=== PATIENT | male | born 1980 | race Caucasian/White ===

== ENCOUNTER 2017-05-27 09:14 | Emergency (ER) | payer OTHER ==
[~2017-05-27] VITALS: Ht 185.4 cm; Wt 93.0 kg
--- OUTSIDE RECORDS SUMMARY | 2017-05-27 09:19 | External Medical Summary Rpt ---
Author Author , Organization [employer] Address Unknown Phone Unavailable Purpose Continuity of Care Document - through 2016
--- OUTSIDE RECORDS SUMMARY | 2017-05-27 09:19 | External Medical Summary Rpt ---
Author Author [employer] Organization [employer] Address Unknown Phone Unavailable Purpose Continuity of Care Document - through 2016
--- OUTSIDE RECORDS SUMMARY | 2017-05-27 09:20 | External Medical Summary Rpt ---
Demographics Preferred Language Puerto Rican Marital Status Unknown Samaritan Affiliation Unknown Race Unknown Ethnic Group Unknown Author Author , Organization [employer] Address Unknown Phone Unavailable Purpose Continuity of Care Document - through 2016 Immunization No patient found.
--- OUTSIDE RECORDS SUMMARY | 2017-05-27 09:20 | External Medical Summary Rpt ---
Author Author [employer], [employer] Organization [employer] Address Unknown Phone Unavailable
--- OUTSIDE RECORDS SUMMARY | 2017-05-27 09:20 | External Medical Summary Rpt ---
Demographics Preferred Language Welsh Marital Status Unknown Catholic Affiliation Unknown Race Unknown Ethnic Group Unknown Author Author , Organization [employer] Address Unknown Phone Unavailable Purpose Continuity of Care Document - through 2016 Immunization No patient found.
--- NOTE | 2017-05-27 10:01 | Urgent Treatment Center Report ---
History of Present Issue Date/Time Seen by Provider 05/27/17 0930 Visit Reason Pt arrived:Walked Presenting Problem:PATIENT STARTED COUGHING THRU THE NIGHT AND HAS A NON- PRODUCTIVE COUGH. FEELS CONGESTION IN HIS CHEST. PT STATES HE ALSO HAS CHILLS. STATES HE FEELS DRAINED AND HAD TO CALL INTO WORK TODAY. Location if Accident: Onset of symptoms date/time:/ or onset unknown for:MEDICAL HX UNKNOWN Have you (or family members/close friends) recently traveled outside the [place]? N If Yes, where/when: Have you had exposure to infectious disease within the past month? TB? Other? Specify: c/o nonproductive cough and chills causing him to call in to work today. Cough started yesterday. Fatigue last night. Went to bed at 5pm, woke up at 11pm sweating. Did not check temp. "I just figured I broke my fever". Eventually fell back to sleep. Woke up this morning still fatigued w/ nonproductive cough again. Hx of pneumonia "around a month or so ago". Treated w/ antibx by PCP, Anmol Salmon, and improved. Denies SOA, wheezing. + tobacco hx 1ppd. Source patient Exam Limitations no limitations ALLERGIES Coded Allergies: No Known Allergies (05/27/17) Home Medications Reported Medications No Known Home Medications History Medical History General Angina: No [place]: No Hypertension? No Hyperlipidemia? No CHF? No COPD? No Asthma? No Hypothyroidism? No CVA? No Seizures? No Diabetes? No GB Disease: No MRSA? No TB? No Cancer? No Immunization HX DT/Tetanus Unknown Surgical Hx Previous Surgery?N Social History Smoking Hx Smoker: Current Every Day Smoker Tobacco: Yes Type Cigarettes Packs/day < 1 Pack Alcohol Alcohol: No Review of Systems All Other Systems Reviewed and Negative Constitutional see HPI Eyes denies drainage ENT denies: ear pain, nose discharge, nose congestion, throat pain. Respiratory see HPI Cardiovascular denies chest pain, denies palpitations Gastrointestinal denies no symptoms reported Musculoskeletal denies other (aches) Skin denies rash Psychiatric/Neurological denies headache Physical Exam Vital Signs Vital Signs Date Time Temp Pulse Resp B/P Pulse O2 O2 Flow FiO2 Ox Delivery Rate 05/27 920 98.6 114 20 137/90 98 General Appearance normal appearance, no apparent distress Eye Exam - bilateral eye normal exam Ear, Nose, Throat normal ENT inspection Neck non-tender, supple, full range of motion, lymphadenopathy (R) Respiratory Status Yes: trachea midline, chest symmetrical, non tender chest, non productive cough (once in clinic). No: respiratory distress, use of accessory muscles, pain on inspiration, pain on expiration. Lung Sounds anterior: lungs clear. posterior: lungs clear. bilateral: lungs clear. Cardiovascular regular rate/rhythm, no peripheral edema, no murmur Neurologic alert, oriented x 3 Skin intact, warm/dry Lymphatic right anterior cervical single lymphadenopathy, approx 1cm, nontender, mobile (pt states present "a long time" and has not been seen for it) Medical Decision Making LABS/Meds/Orders Pt receiving controlled substance in ED? No Results/Orders Orders Procedure Date/time Status CHEST(2 VIEWS-NOT PORTABLE) 05/27 0942 Active XRAY/CT/US XRAY/CT/US XRAY chest XR interpretation by reviewed by me (chrissy w/ SHIRIN Durand MD) Xray Results normal/NAD Departure Departure Time of Disposition 1010 Disposition DC Home or Self Care(routine) Clinical Impression Primary Impression: Cough Secondary Impressions: Lymphadenopathy Condition STABLE Referrals ANMOL SALMON APRN For swollen lymph node, call today and schedule follow up appointment immediately. Be SURE to tell them this has been swollen an unknown amount of time. For cough, Follow up IMMEDIATELY for new or worsening symptoms OR no noticeable improvement over the next 48-72 hours. 911 for difficulty breathing.* Patient Instructions DI for Cough -- Adult, DI for Lymphadenopathy Additional Instructions Swollen Lymph Node: Lengthy discussion regarding differential diagnosis given length of time since swollen. This discussion included cancer. Offered labs today. Pt agrees to schedule follow up appt with PCP, Anmol Salmon, to have further workup. Aware of the importance of making sure the provider is aware of the length of time lymph node has remained swollen. * No sign of bacterial infection. Chest xray normal. Likely viral. Virus can take 7-14 days to run their course * Monitor Temp. Tylenol every 4 hours as needed and/or ibuprofen every 6 hours as needed (as long as your primary care doctor has told you that it is ok to take both) for fever/aches/pain. ER if fever no less than 101 despite tylenol and ibuprofen * Encourage fluids, water, gatorade, powerade, pedialyte if /toddler/child * sleep elevated * humidifier/vaporizer * Mucinex during the day for your cough and cough suppressant only at night. Be sure to drink lots of water. Insurance may not cover a prescription of mucinex. Might be cheaper to get 400mg tablets and take 2 tablets morning, midday and evening all with lots of water. * Tessalon Perles will not cause drowsiness but use at bedtime to help stop cough so that you can get some rest Follow up IMMEDIATELY for new or worsening symptoms OR no noticeable improvement over the next 48-72 hours. 911 for difficulty breathing or swallowing. Discharge Counseling Counseled pt/family regarding diagnosis, test results, medications/RX, home care, follow up needs Prescriptions Current Visit Scripts Benzonatate 200 MG PO QHSP PRN cough #14 SGL at 1014
[2017-05-27] MEDS ORDERED: BENZONATATE200 MG PO (10:14)
[2017-05-27 10:15] VITALS: BP 137/90
--- NOTE | 2017-05-27 11:36 | RADIOLOGY REPORT PS360 ---
CHEST(2 VIEWS-NOT PORTABLE) HISTORY: Nonproductive cough CONGESTION ORDERING PHYSICIAN: CHAPARRO VALLADARES APRN PATIENT AGE: 37 years COMPARISON: 09/08/2016 FINDINGS: The cardiomediastinal silhouette and pulmonary vascularity are within normal limits. The lungs are clear without infiltrates, suspicious nodules, or pleural effusions. No acute bony abnormalities. IMPRESSION: Negative chest, no acute finding
== END 2017-05-27 10:19 | disposition home or self-care (01) ==
LOC: UTC 09:14
DX: R05 Cough (principal); R59.9 Enlarged lymph nodes, unspecified